=== PATIENT | male | born 1945 | race Caucasian/White ===

== ENCOUNTER 2018-07-01 11:46 | Emergency (ER) | payer MEDICARE ==
--- NOTE | 2018-07-01 12:53 | EDM.PDOC ---
ED HPI GENERAL MEDICAL PROBLEM - General Chief Complaint: Genitourinary Problem Stated Complaint: CATH ISSUE Time Seen by Provider: 07/01/18 11:53 Source of Information: Reports: Patient, Other (Caregiver) History Limitations: Reports: Physical Impairment - History of Present Illness INITIAL COMMENTS - FREE TEXT/NARRATIVE: 72 y.o.w.m with a H/O Colon CA Dx'd 03/2010, He had a suprapubic 22 Bardex urinary catheter placed due to a complication during his colon surgery. He cam to the ED because he was not able to pass urine through his Suprapubic catheter and has distension of his abdomen. There were 999 cc of urine in his bladder. The pt was seen somewhere els yesterday. The clinic did not have the correct catheter. This is why the pt came to our ED. Pt's only request is to change the urinary catheter. No N/V/D, no C/P or any other acute medical issue. BP 114/ 64 RR 18 Pulse ox 98% on RA, Temp 36.4 Pulse 72. Onset Date: 06/25/18 Onset Time: 06:00 Duration: Day(s):, Getting Worse, Intermittent Location: Reports: Pelvis Quality: Reports: Dull, Pressure, Same as Previous Episode Severity: Moderate Improves with: Reports: Rest Worsens with: Reports: Movement Context: Reports: Other (suprapubic catheter is bloocked. ) Lower abdomen Pain Score (Numeric/FACES): 10 - Related Data Allergies Allergy/AdvReac Type Severity Reaction Status Date / Time Penicillins Allergy Hives Verified 07/01/18 11:56 Sulfa (Sulfonamide Allergy Hives Verified 07/01/18 11:56 Antibiotics) Home Meds: Home Meds Acetaminophen [Tylenol] 650 mg PO Q4H PRN 07/01/18 [History] L.acidoph,Paracasei, B.lactis [Probiotic] 1 each PO DAILY 07/01/18 [History] Past Medical History Gastrointestinal History: Reports: Other (See Below) Other Gastrointestinal History: hx colon CA Genitourinary History: Reports: Other (See Below) Other Genitourinary History: has suprapubic cath since colon surgery 2009. Musculoskeletal History: Reports: Arthritis Oncologic (Cancer) History: Reports: Colon - Infectious Disease History Infectious Disease History: Reports: C-Difficile, Chicken Pox, Measles, Mumps - Past Surgical History HEENT Surgical History: Reports: Adenoidectomy, Oral Surgery, Tonsillectomy GI Surgical History: Reports: Appendectomy, Colon, Colonoscopy, Colostomy, EGD Other GI Surgeries/Procedures: Has ileostomy. Male Surgical History: Reports: Suprapubic Catheter Placement Oncologic Surgical History: Reports: Other (See Below) Other Oncologic Surgeries/Procedures: colon removal Social & Family History - Family History Family Medical History: Noncontributory - Tobacco Use Smoking Status *Q: Former Smoker Years of Tobacco use: 15 Used Tobacco, but Quit: Yes Month/Year Tobacco Last Used: apr - Caffeine Use Caffeine Use: Reports: Coffee - Recreational Drug Use Recreational Drug Use: No ED ROS GENERAL - Review of Systems Review Of Systems: See Below Constitutional: Reports: No Symptoms HEENT: Reports: No Symptoms Respiratory: Reports: No Symptoms Cardiovascular: Reports: No Symptoms Endocrine: Reports: No Symptoms GI/Abdominal: Reports: Abdominal Pain (unable to pass urine through his suprapubic catheter. ) : Reports: No Symptoms Musculoskeletal: Reports: No Symptoms Skin: Reports: No Symptoms Neurological: Reports: No Symptoms Psychiatric: Reports: No Symptoms Hematologic/Lymphatic: Reports: No Symptoms Immunologic: Reports: No Symptoms ED EXAM, RENAL/ - Physical Exam Exam: See Below Exam Limited By: Physical Impairment General Appearance: Alert, WD/WN, Moderate Distress, Cachetic Eye Exam: Bilateral Eye: Normal Inspection Ears: Normal External Exam Nose: Normal Inspection Throat/Mouth: Normal Lips, Normal Voice, No Airway Compromise, Other (poor dentition) Head: Atraumatic, Normocephalic Neck: Normal Inspection, Supple, Non-Tender, Full Range of Motion Respiratory/Chest: No Respiratory Distress, Lungs Clear Cardiovascular: Normal Peripheral Pulses, Regular Rate, Rhythm, No Edema GI/Abdominal: Normal Bowel Sounds, Tender, Other (gastric pouch in plac) (Male) Exam: No Hernia, Other (suprapubic catheter in place, bladder distended, U Cath did not flash) Rectal (Males) Exam: Deferred Back Exam: Normal Inspection, Full Range of Motion Extremities: Normal Inspection, No Pedal Edema, Normal Capillary Refill, Limited Range of Motion (bilatr chronic knee pain) Neurological: Alert, Oriented, CN II-XII Intact, Normal Cognition, Abnormal Gait (due to johnny chronic knee pain) Psychiatric: Normal Affect, Normal Mood Skin Exam: Warm, Dry, Intact Lymphatic: No Adenopathy Course - Vital Signs Text/Narrative:: 72 y.o.w.m with a H/O Colon CA Dx'd 03/2010, He had a suprapubic 22 Bardex urinary catheter placed due to a complication during his colon surgery. He cam to the ED because he was not able to pass urine through his Suprapubic catheter and has distension of his abdomen. There were 999 cc of urine in his bladder. The pt was seen somewhere els yesterday. The clinic did not have the correct catheter. This is why the pt came to our ED. Pt's only request is to change the urinary catheter. No N/V/D, no C/P or any other acute medical issue. BP 114/ 64 RR 18 Pulse ox 98% on RA, Temp 36.4 Pulse 72. PE: Cachectic 72 y.o.w.m with blocked suprapubic 22 Bardex catheter. 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 Boss, Surgeon: Needs to be seen by a urologist. 12.50 pm Consultation: Dr Good, Urologist: [place]: Pt must go back to his surgeon who placed the 22 Bardex, no surgical records are at [facility] 1.15 pm Consultation> Dr. Trejo, Urologist, [place]: he knows the pt well and is happy the replace the 22 Bardek suprapubic cathere as soon as the pt arrived in his clinic. Reexam: Pt was doing fine in the ED Plan: D/C with with instructions with his caregiver. Last Recorded V/S: Last Vital Signs Temp 36.3 C 07/01/18 13:19 Pulse 67 07/01/18 13:19 Resp 18 07/01/18 13:19 BP 127/72 07/01/18 13:19 Pulse Ox 100 07/01/18 13:19 Departure - Departure Time of Disposition: 13:18 Disposition: DC/Tfer to Acute Hospital 02 Condition: Good Clinical Impression: Urinary retention - Discharge Information Referrals: Shanita Molina STENCIL MACHINE OPERATOR [Primary Care Provider] - Forms: ED Department Discharge Additional Instructions: Please go straight to the [facility] and see Dr. Trejo, Urologit who will replace the Bardex Urinary Catheter. Please come back if your symptoms get worse acutely
== END 2018-07-01 13:25 ==
LOC: FB.ED 11:46
DX: R33.9 Retention of urine, unspecified (principal); Z88.0 Allergy status to penicillin; Z88.2 Allergy status to sulfonamides; Z87.891 Personal history of nicotine dependence
CPT/HCPCS: 99283; 99284